=== PATIENT | female | born 1990 | race Caucasian/White ===

== ENCOUNTER 2017-04-25 21:41 | Emergency (ER) | payer BC, OTHER ==
--- NOTE | 2017-04-25 22:12 | ERPHSYRPT ---
- History of Present Illness Time Seen by Provider: 04/25/17 21:55 Historian: patient Exam Limitations: no limitations Patient Subjective Stated Complaint: pt states she had a small amt of bright red blood on her underwear and when she wiped at approx 2120. states she had some cramping this afternoon that went away Triage Nursing Assessment: pt alert and oriented, answers questions approp. pt ambulatory with steady gait noted. respirations nonlabored with lungs cta. abd soft and nontender. bowel osunds in all 4 quads. Physician History: FOR THE PAST 2 DAYS PT HAS HAD LOWER ABDOMINAL CRAMPS AND ABOUT 45 MINUTES AGO STARTED WITH BRIGHT RED VAGINAL BLEEDING ABOUT 1 TABLESPOON. PT DENIES CHEST PAIN, SHORTNESS OF AIR, RASH, FEVER, HEADACHE. PT STATES SHE IS 11 WEEKS AND HAS ONE LIVING CHILD; DENIES ABORTIONS OR MISCARRIAGES. Allergies/Adverse Reactions: No Known Drug Allergies Allergy (Verified 02/24/16 15:35) Hx Tetanus, Diphtheria Vaccination/Date Given: Yes Hx Influenza Vaccination/Date Given: No Hx Pneumococcal Vaccination/Date Given: No Immunizations Up to Date: Yes - Review of Systems Constitutional: No Fever Respiratory: No Dyspnea Cardiac: No Chest Pain Abdominal/Gastrointestinal: Abdominal Pain Genitourinary Symptoms: Vaginal Bleeding Skin: No Rash Neurological: No Headache All Other Systems: Reviewed and Negative - Past Medical History Pertinent Past Medical History: No Neurological History: No Pertinent History ENT History: No Pertinent History Cardiac History: No Pertinent History Respiratory History: No Pertinent History Endocrine Medical History: No Pertinent History Musculoskeletal History: No Pertinent History GI Medical History: Gallbladder Disease History: No Pertinent History Psycho-Social History: No Pertinent History Female Reproductive Disorders: No Pertinent History - Past Surgical History Past Surgical History: Yes Neuro Surgical History: No Pertinent History Cardiac: No Pertinent History Respiratory: No Pertinent History Gastrointestinal: Cholecystectomy Genitourinary: No Pertinent History Musculoskeletal: No Pertinent History Female Surgical History: Section - Social History Smoking Status: Current every day smoker How long have you smoked: 10 yrs Exposure to second hand smoke: Yes Drug Use: none Patient Lives Alone: No - Female History Hx Last Menstrual Period: january- unsure when Expected Date of Delivery: 11/03/17 Gestational Age: 12 weeks - Nursing Vital Signs Nursing Vital Signs: Initial Vital Signs Temperature 97.4 F 04/25/17 21:45 Pulse Rate 91 H 04/25/17 21:45 Respiratory Rate 16 04/25/17 21:45 Blood Pressure 128/87 04/25/17 21:45 O2 Sat by Pulse Oximetry 99 04/25/17 21:45 Pain Scale Pain Intensity 0 - Physical Exam General Appearance: alert Eye Exam: PERRL/EOMI Ears, Nose, Throat Exam: TMs normal, pharynx normal, moist mucous membranes Neck Exam: normal inspection Respiratory Exam: lungs clear Cardiovascular Exam: normal heart sounds Gastrointestinal/Abdomen Exam: soft, normal bowel sounds, No tenderness Back Exam: normal range of motion Extremity Exam: normal inspection, No pedal edema Neurologic Exam: alert, cooperative Skin Exam: warm, dry SpO2 Interpretation: normal SpO2: 99 Oxygen Delivery: Room Air - Course Nursing assessment & vital signs reviewed: Yes - Radiology Ultrasound Exam OB Ultrasound: Other (TECH REPORT: BLIGHTED OVUM.) Ordered Tests: Active Orders 24 hr Category Date Time Status OB <14 WKS ADDL GESTATION [US] Stat Exams 04/25/17 23:39 Ordered AMYLASE Stat Lab 04/25/17 22:30 Completed CBC W DIFF Stat Lab 04/25/17 22:30 Completed CMP Stat Lab 04/25/17 22:30 Completed CULTURE,URINE Stat Lab 04/25/17 22:20 Received HCG, Quantitative (Inhouse) Stat Lab 04/25/17 22:30 Completed LIPASE Stat Lab 04/25/17 22:30 Completed PROTIME WITH INR Stat Lab 04/25/17 22:30 Completed PTT Stat Lab 04/25/17 22:30 Completed UA W/ MICROSCOPIC Stat Lab 04/25/17 22:20 Completed Lab/Rad Data: Laboratory Result Diagrams 04/25/17 22:30 04/25/17 22:30 Laboratory Results 04/25/17 04/25/17 04/25/17 Range/Units 22:30 22:30 22:30 WBC (4.0-10.5) K/mm3 RBC (4.1-5.4) M/mm3 Hgb (12.0-16.0) gm/dl Hct (35-47) % MCV (78-100) fl MCH (26-32) pg MCHC (32-36) g/dl RDW (11.5-14.0) % Plt Count (150-450) K/mm3 MPV (6-9.5) fl Gran % (36.0-66.0) % Lymphocytes % (24.0-44.0) % Monocytes % (0.0-12.0) % Eosinophils % (0.00-5.0) % Basophils % (0.0-0.4) % Basophils # (0-0.4) INR 1.12 (0.8-3.0) APTT 30.3 (25.3-37.0) SECONDS Sodium 143 (136-145) mEq/L Potassium 4.1 (3.5-5.1) mEq/L Chloride 105 (98-107) mEq/L Carbon Dioxide 28.0 (21-32) mEq/L Anion Gap 13.7 (5-15) MEQ/L BUN 9 (9-20) mg/dL Creatinine 0.64 (0.55-1.30) mg/dl Estimated GFR > 60 ML/MIN Glucose 86 (70-110) MG/DL Calcium 9.1 (8.5-10.1) mg/dL Total Bilirubin 0.20 (0.2-1.0) mg/dL AST 20 (15-37) U/L ALT 23 (12-78) U/L Alkaline Phosphatase 64 (46-116) U/L Serum Total Protein 7.1 (6.4-8.2) gm/dL Albumin 3.4 (3.4-5.0) g/dL Amylase 54 (25-115) U/L Lipase 75 (73-393) U/L Beta HCG, Quant 2751 H (0-6) IU/L Ur Collection Type Urine Color (YELLOW) Urine Appearance (CLEAR) Urine pH (5-6) Ur Specific Martin (1.005-1.025) Urine Protein (Negative) Urine Ketones (NEGATIVE) Urine Blood (0-5) Tariq/ul Urine Nitrite (NEGATIVE) Urine Bilirubin (NEGATIVE) Urine Urobilinogen (0-1) mg/dL Ur Leukocyte Esterase (NEGATIVE) Urine Microscopic RBC (0-2) /HPF Urine Microscopic WBC (0-5) /HPF Ur Epithelial Cells (FEW) /HPF Urine Bacteria (NEGATIVE) /HPF Urine Glucose (NEGATIVE) mg/dL Specimen Received 04/25/17 04/25/17 Range/Units 22:30 22:20 WBC 14.0 H (4.0-10.5) K/mm3 RBC 3.95 L (4.1-5.4) M/mm3 Hgb 12.0 (12.0-16.0) gm/dl Hct 36.2 (35-47) % MCV 91.6 (78-100) fl MCH 30.3 (26-32) pg MCHC 33.1 (32-36) g/dl RDW 13.1 (11.5-14.0) % Plt Count 244 (150-450) K/mm3 MPV 10.1 H (6-9.5) fl Gran % 60.0 (36.0-66.0) % Lymphocytes % 27.2 (24.0-44.0) % Monocytes % 7.7 (0.0-12.0) % Eosinophils % 4.8 (0.00-5.0) % Basophils % 0.3 (0.0-0.4) % Basophils # 0.04 (0-0.4) INR (0.8-3.0) APTT (25.3-37.0) SECONDS Sodium (136-145) mEq/L Potassium (3.5-5.1) mEq/L Chloride (98-107) mEq/L Carbon Dioxide (21-32) mEq/L Anion Gap (5-15) MEQ/L BUN (9-20) mg/dL Creatinine (0.55-1.30) mg/dl Estimated GFR ML/MIN Glucose (70-110) MG/DL Calcium (8.5-10.1) mg/dL Total Bilirubin (0.2-1.0) mg/dL AST (15-37) U/L ALT (12-78) U/L Alkaline Phosphatase (46-116) U/L Serum Total Protein (6.4-8.2) gm/dL Albumin (3.4-5.0) g/dL Amylase (25-115) U/L Lipase (73-393) U/L Beta HCG, Quant (0-6) IU/L Ur Collection Type CLEAN CATCH Urine Color LIGHT RED (YELLOW) Urine Appearance CLEAR (CLEAR) Urine pH 6.5 (5-6) Ur Specific Martin 1.015 (1.005-1.025) Urine Protein 30 (Negative) Urine Ketones NEGATIVE (NEGATIVE) Urine Blood 250 (0-5) Tariq/ul Urine Nitrite NEGATIVE (NEGATIVE) Urine Bilirubin NEGATIVE (NEGATIVE) Urine Urobilinogen NORMAL (0-1) mg/dL Ur Leukocyte Esterase 1+ (NEGATIVE) Urine Microscopic RBC 10-15 (0-2) /HPF Urine Microscopic WBC 2-5 (0-5) /HPF Ur Epithelial Cells RARE (FEW) /HPF Urine Bacteria FEW (NEGATIVE) /HPF Urine Glucose NEGATIVE (NEGATIVE) mg/dL Specimen Received 04/25/17:2230 - Progress Discussed with : Christiano (36-NOVEMBER SEND PT HOME.) - Departure Time of Disposition: 00:44 Departure Disposition: Home Clinical Impression: BLIGHTED OVUM, VAGINAL BLEEDING Condition: Stable Critical Care Time: No Referrals: LEBRON MAYS MD [Primary Care Provider] - Instructions: Vaginal Bleeding Additional Instructions: FOLLOW UP WITH OB DOCTOR LATER TODAY. STRICT BED REST UNTIL OB DOCTOR IS SEEN TODAY.
[2017-04-25 22:35] LABS: BASOPHIL % 0.3 % (0.0-0.4); Eosinophil % 4.8 % (0.00-5.0); Lymphocytes % 27.2 % (24.0-44.0); Mean Cell Volume 91.6 fl (78-100); Mean Platelet Volume 10.1 fl (6-9.5); Monocytes % 7.7 % (0.0-12.0); Platelet Count 244 K/mm3 (150-450); Red Blood Count 3.95 M/mm3 (4.1-5.4); Red Cell Distribution Width 13.1 % (11.5-14.0)
[2017-04-25 22:37] LABS: Mean Corpuscular Hemoglobin 30.3 pg (26-32)
[2017-04-25 22:49] LABS: ADD URINE CULTURE? YES (NO); Bilirubin NEGATIVE (NEGATIVE); Blood 250 Ery/ul (0-5); COMPLETE URINE MICROSCOPIC? YES; Collection Type CLEAN CATCH; Glucose NEGATIVE (NEGATIVE); Leukocyte Esterase 1+ (NEGATIVE)
[2017-04-25 22:50] LABS: Bacteria FEW /HPF (NEGATIVE); Epithelial Cells RARE /HPF (FEW)
[2017-04-25 22:52] LABS: INR 1.12 (0.8-3.0); PROTIME 12.5 SECONDS (9.95-12.35)
[2017-04-25 22:54] LABS: PTT 30.3 SECONDS (25.3-37.0)
[2017-04-25 23:00] LABS: ALBUMIN 3.4 g/dL (3.4-5.0); ALKALINE PHOSPHATASE 64 U/L (46-116); ANION GAP 13.7 MEQ/L (5-15); BLOOD UREA NITROGEN 9 mg/dL (9-20); CHLORIDE 105 mEq/L (98-107); Glucose 86 MG/DL (70-110); LIPASE 75 U/L (73-393); Potassium 4.1 mEq/L (3.5-5.1); SGOT/AST 20 U/L (15-37); SGPT/ALT 23 U/L (12-78); SODIUM 143 mEq/L (136-145); Total Protein 7.1 gm/dL (6.4-8.2)
[2017-04-26 00:44] VITALS: O2SAT 99
[2017-04-26 00:47] VITALS: BP 125/74; PULSE 80
--- NOTE | 2017-04-26 09:05 | XRAY ---
Indication: Bleeding. 12 weeks . Two-dimensional transvaginal early OB ultrasound performed. Comparison: None for this . Uterus is retroflexed with a single intrauterine gestational sac that appears flat. Mean sac diameter is 2.81 cm corresponding to 7 weeks 4 days. There are low-level internal echoes within the gestational sac but no pole or heart tones. Right ovary measures 2.9 x 2.8 x 3.4 cm and the left measures 3.4 x 1.7 x 2.6 cm. No suspicious adnexal mass or free fluid. Impression: Single intrauterine gestational sac appearing deformed measuring 7 weeks 4 days. No pole or heart tones. Correlate with serial beta hCG and follow-up sonogram to evaluate viability. Comment: Preliminary report was given.
== END 2017-04-26 00:51 | disposition home or self-care (01) ==
LOC: ED 21:41
DX: O02.0 Blighted ovum and nonhydatidiform mole (principal); N93.9 Abnormal uterine and vaginal bleeding, unspecified
CPT/HCPCS: 36415; 76815; 76817; 80053; 81000; 82150; 83690; 84702; 85025; 85610; 85730; 87086; 99284

== ENCOUNTER 2018-04-03 17:58 | Observation (INO) | payer OTHER ==
[2018-04-03 18:47] LABS: Amphetamine,Urine NEGATIVE (NEGATIVE); Barbiturate,Urine NEGATIVE (NEGATIVE); Benzodiazepine,Urine NEGATIVE (NEGATIVE); Cocaine,Urine NEGATIVE (NEGATIVE); Methadone,Urine NEGATIVE (NEGATIVE); Opiate,Urine NEGATIVE (NEGATIVE); PCP,Urine NEGATIVE (NEGATIVE); THC,Urine NEGATIVE (NEGATIVE)
[2018-04-03 20:14] LABS: Appearance CLEAR (CLEAR); Bilirubin NEGATIVE (NEGATIVE); Glucose NEGATIVE (NEGATIVE); Ketones NEGATIVE (NEGATIVE); Leukocyte Esterase 1+ (NEGATIVE); Nitrite NEGATIVE (NEGATIVE); Protein,Urine Dip NEGATIVE (Negative); Specific Gravity 1.025 (1.005-1.025); Urobilinogen NORMAL mg/dL (0-1)
[2018-04-03 20:15] LABS: Blood TRACE NON-HEM Ery/ul (0-5)
[2018-04-03 20:18] LABS: Bacteria MANY /HPF (NEGATIVE); Epithelial Cells MANY /HPF (FEW); RBC 0-2 /HPF (0-2); WBC 15-25 /HPF (0-5)
[2018-04-03 20:50] VITALS: BP 129/68; PULSE 90
== END 2018-04-03 20:45 | disposition home or self-care (01) ==
LOC: OB 17:58
PROVIDERS: ADMIT Family Medicine; ATTEND Family Medicine
DX: Z34.83 Encounter for supervision of other normal pregnancy, third trimester (principal)
CPT/HCPCS: 80307; 81000; 84156; G0378

== ENCOUNTER 2018-04-20 02:41 | Inpatient (IN) | payer OTHER ==
[2018-04-20 03:35] LABS: Hematocrit 34.5 % (35-47); Hemoglobin 11.4 gm/dl (12.0-16.0); Mean Cell Volume 90.3 fl (78-100); Mean Corpuscular Hemoglobin 29.8 pg (26-32); Mean Platelet Volume 11.3 fl (6-9.5); Platelet Count 250 K/mm3 (150-450); Red Blood Count 3.82 M/mm3 (4.1-5.4); Red Cell Distribution Width 14.6 % (11.5-14.0); White Blood Count 18.1 K/mm3 (4.0-10.5)
[2018-04-20 03:49] LABS: INR 0.99 (0.8-3.0)
[2018-04-20 03:52] LABS: PTT 24.6 SECONDS (25.3-37.0)
[2018-04-20] MEDS ORDERED: CEFAZOLIN 2 GM-D5W BAG** 2 GM/50 ML ML IV SCH (04:30)
[2018-04-20 04:40] LABS: Appearance CLOUDY (CLEAR)
[2018-04-20 04:42] LABS: Bilirubin NEGATIVE (NEGATIVE); Blood TRACE NON-HEM Ery/ul (0-5); Glucose NEGATIVE (NEGATIVE); Ketones SMALL (NEGATIVE); Leukocyte Esterase 2+ (NEGATIVE); Nitrite NEGATIVE (NEGATIVE); Protein,Urine Dip TRACE (Negative); Urobilinogen 1 mg/dL (0-1)
[2018-04-20 04:47] LABS: Bacteria MANY /HPF (NEGATIVE); Epithelial Cells MANY /HPF (FEW); WBC 25-50 /HPF (0-5)
[2018-04-20 04:52] LABS: ABO TYPING A; Antibody Screen NEGATIVE (NEGATIVE); RH TYPING POSITIVE
[2018-04-20 04:55] LABS: Amphetamine,Urine NEGATIVE (NEGATIVE); Barbiturate,Urine NEGATIVE (NEGATIVE); Benzodiazepine,Urine NEGATIVE (NEGATIVE); Cocaine,Urine NEGATIVE (NEGATIVE); Methadone,Urine NEGATIVE (NEGATIVE); Opiate,Urine NEGATIVE (NEGATIVE); PCP,Urine NEGATIVE (NEGATIVE); THC,Urine NEGATIVE (NEGATIVE)
[2018-04-20] MEDS ORDERED: Lactated Ringers 1,000 ML IV SCH (05:00)
[2018-04-20] MEDS ORDERED: Pepcid 20 MG VIAL IV SCH (05:00)
[2018-04-20] MEDS ORDERED: BICITRA 30 ML CUP PO SCH (05:00)
[2018-04-20] MEDS ORDERED: Reglan 10 MG/2 ML IV SCH (05:00)
[2018-04-20] MEDS ORDERED: Lactated Ringers 1,000 ML IV ONE ×2 (05:00→08:23)
[2018-04-20] MEDS ORDERED: MORPHINE SULFATE 2 MG INJ IV PRN (09:00)
[2018-04-20] MEDS ORDERED: Anucort-HC SUPPOSITORY PR PRN (09:00)
[2018-04-20] MEDS ORDERED: LANSINOH 40 GM TOP PRN (09:00)
[2018-04-20] MEDS ORDERED: Dulcolax 10 MG SUPP PR PRN (09:00)
[2018-04-20] MEDS ORDERED: Nubain 10 MG/ML IV PRN (09:00)
[2018-04-20] MEDS ORDERED: Adacel Vial IM ONE (09:00)
[2018-04-20] MEDS ORDERED: TYLENOL EXTRA STRENGTH 500 MG PO PRN (09:00)
[2018-04-20] MEDS ORDERED: BENADRYL 50 MG/ML IV PRN (09:00)
[2018-04-20] MEDS ORDERED: Mylicon 80MG PO PRN (09:00)
[2018-04-20] MEDS ORDERED: DEMEROL 50 MG IV PRN (09:00)
[2018-04-20] MEDS ORDERED: CORTISONE 1% CREAM TP PRN (09:00)
[2018-04-20] MEDS ORDERED: CLARITIN 10 MG PO PRN (09:00)
[2018-04-20] MEDS ORDERED: Dermoplast Spray TP PRN (09:00)
[2018-04-20] MEDS ORDERED: Zofran 4 MG/2 ML VIAL IV PRN (09:00)
[2018-04-20] MEDS ORDERED: Narcan 0.4 MG/ML IV PRN (09:00)
[2018-04-20] MEDS ORDERED: HOLD NARCOTIC ANALGESICS AND SEDATIVES X24 HR MC PRN (09:00)
--- NOTE | 2018-04-20 09:23 | OP ---
SURGERY DATE/TIME: 04/20/2018 0735 PREOPERATIVE DIAGNOSES: 1) History of prior section. 2) Term intrauterine . POSTOPERATIVE DIAGNOSES: 1) History of prior section. 2) Term intrauterine . PROCEDURE: Repeat low transverse section. SURGEON: Fabrizio Ambrosio M.D. ESTIMATED BLOOD LOSS: 400 cc. IV FLUIDS: 1500 cc of crystalloid. URINE OUTPUT: 200 cc of clear straw-colored urine. ANESTHESIA: Spinal by Holden Hensley CRNA. SPECIMENS: None. DESCRIPTION OF PROCEDURE: After informed written consent was obtained, the patient was taken to the operating room. She underwent spinal anesthesia and was prepped and draped in the usual sterile fashion. Adequate level of anesthesia was assessed and then a low transverse skin incision was made by knife carried through the subcutaneous fat to the level of the fascia. The fascia was nicked on both sides of the midline and extended in horizontal fashion using curved Benjamin scissors. The superior free edge of the fascia was grasped with Jacki clamps and the underlying rectus muscles were dissected free. The same was repeated inferiorly. The peritoneal cavity was opened and extended in horizontal fashion. Next, a bladder blade was created and reflected over the lower uterine segment. A horizontal uterine incision was then made by knife and carried down to the level of the amniotic membranes which were carefully artificially ruptured. A viable female infant with loose nuchal x1 was delivered from the vertex presentation. Oropharynx and nares were bulb suctioned free. The cord was clamped and cut and she was handed off to the awaiting nursery team. There was meconium passed on the operative field by the baby at . The uterus was exteriorized and the placenta was manually removed. Next, the uterine cavity was wiped free of any remaining membranes, blood, clot, etc. with a lap sponge. Next, the uterine incision was closed with #1 chromic in a running locked fashion. Good closure and good hemostasis were achieved. Posterior cul-de-sac was wiped free of blood and clot with moist lap sponge after inspection. The uterus was then returned to the peritoneal cavity. Lateral gutters were wiped free of blood and clot. Again, the uterine incision was inspected and noted to be hemostatic. Next, the fascia was closed with 0 Vicryl in a running fashion with good closure and good hemostasis were achieved. The subcutaneous fat was irrigated with warm, sterile saline and then the subcutaneous fat space was closed with 3-0 Vicryl in a running fashion. The skin was closed with 4-0 undyed Vicryl in a running subcuticular fashion. Steri-Strips and occlusive dressing were placed over the incision. The patient was transferred to the recovery in good condition.
[2018-04-20 10:01] LABS: Appearance CLEAR (CLEAR); Specific Gravity 1.005 (1.005-1.025)
[2018-04-20 10:02] LABS: Bilirubin NEGATIVE (NEGATIVE); Blood NEGATIVE Ery/ul (0-5); Glucose NEGATIVE (NEGATIVE); Ketones NEGATIVE (NEGATIVE); Leukocyte Esterase NEGATIVE (NEGATIVE); Nitrite NEGATIVE (NEGATIVE); Protein,Urine Dip NEGATIVE (Negative); Urobilinogen NORMAL mg/dL (0-1)
[2018-04-20] MEDS: Dextrose 5%-Lr IV Solution 1000 ML 1,000 ML IV SCH ×2 (12:00→19:21)
[2018-04-20] MEDS: PERCOCET TABLET 5/325MG PO PRN ×2 (12:51→19:21)
[2018-04-20] MEDS: Colace 100 MG PO SCH ×2 (13:11→22:42)
[2018-04-20] MEDS ORDERED: M-M-R II Vaccine With Diluent SQ ONE (13:11)
[2018-04-20] MEDS: FERREX 150 PO SCH (13:11)
[2018-04-20] MEDS ORDERED: Astramorph-Pf 5 MG/10 ML IJ ONE (15:27)
[2018-04-20] MEDS ORDERED: Naropin 0.5% 30 ML VIAL IJ ONE (15:32)
[2018-04-20] MEDS ORDERED: Pitocin 10 UNITS/ML IV ONE (15:32)
[2018-04-20] MEDS ORDERED: TORAdol 30 mg Injection IJ ONE (15:32)
[2018-04-20] MEDS ORDERED: Zofran 4 MG/2 ML VIAL IV ONE (15:32)
[2018-04-20] MEDS ORDERED: Decadron 4 MG INJ IV ONE (15:32)
[2018-04-20] MEDS ORDERED: LIDOCAINE HCL 2% 100 MG/5 ML IJ ONE (15:32)
[2018-04-20] MEDS ORDERED: Marcaine Spinal Ampul IJ ONE (15:32)
[2018-04-20] MEDS: MOTRIN 400 MG PO PRN (16:29)
[2018-04-21] MEDS: PERCOCET TABLET 5/325MG PO PRN ×2 (01:22→06:17)
[2018-04-21] MEDS: Dextrose 5%-Lr IV Solution 1000 ML 1,000 ML IV SCH (03:24)
[2018-04-21 05:31] LABS: Granulocyte Absolute (ANC) 14.89 (1.4-6.9); Hematocrit 28.1 % (35-47); Hemoglobin 9.1 gm/dl (12.0-16.0); Mean Cell Volume 92.4 fl (78-100); Mean Corpuscular Hemoglobin 29.9 pg (26-32); Mean Corpuscular Hgb Concent. 32.4 g/dl (32-36); Mean Platelet Volume 11.4 fl (6-9.5); Platelet Count 207 K/mm3 (150-450); Red Blood Count 3.04 M/mm3 (4.1-5.4); Red Cell Distribution Width 14.5 % (11.5-14.0)
[2018-04-21 06:30] VITALS: O2SAT 97
[2018-04-21 06:37] LABS: ATYPICAL LYMPHS 1 %; Eosinophil 1 % (0.00-3.0); Lymphocytes 27 % (24-44); Monocyte 2 % (0.0-12.0); Neutrophils 69 % (36.0-66.0); Total Cells Counted 100
[2018-04-21 06:39] LABS: Platelet Estimate NORMAL (NORMAL)
[2018-04-21] MEDS ORDERED: DEMEROL 75 MG IM PRN (09:00)
[2018-04-21] MEDS ORDERED: Phenergan 25 MG INJ IM PRN (09:00)
[2018-04-21] MEDS: FERREX 150 PO SCH (09:59)
[2018-04-21] MEDS: Colace 100 MG PO SCH ×2 (09:59→21:56)
[2018-04-21] MEDS: NORCO 5/325 MG PO PRN ×3 (10:29→19:59)
[2018-04-21] MEDS: MOTRIN 400 MG PO PRN ×2 (15:09→21:56)
[2018-04-22] MEDS: NORCO 5/325 MG PO PRN ×3 (01:59→10:50)
[2018-04-22] MEDS: MOTRIN 400 MG PO PRN (06:21)
[2018-04-22 07:36] VITALS: BP 132/76; PULSE 65
--- NOTE | 2018-04-22 08:50 | PCM.DS ---
Discharge Summary Date of Admission: 04/20/18 02:41 Admitting Physician: LEBRON MAYS Consults: Consults on Case 04/20/18 05:00 Notify Anesthesia Provider ROUTINE Notify Physician OF ADMISSION Primary Care Provider: LEBRON MAYS Allergies Allergies No Known Drug Allergies Allergy (Verified 04/03/18 18:13) Hospital Summary - Hospital Course Hospital Course: patient had repeat on 04/20/18, has had no complications. doing well with mild lochia, pain is well controlled. tolerating po and vitals are good - Vitals & Intake/Output Vital Signs: Vital Signs Temperature 98.3 F 04/22/18 06:00 Pulse Rate 65 04/22/18 06:00 Respiratory Rate 18 04/22/18 06:00 Blood Pressure 132/76 04/22/18 06:00 O2 Sat by Pulse Oximetry 97 04/21/18 08:00 Intake & Output: Intake & Output 04/19/18 04/20/18 04/21/18 04/22/18 11:59 11:59 11:59 11:59 Intake Total 3752 1740 Output Total 2150 Balance 1602 1740 Weight 234 kg 106.541 kg - Lab Result Diagrams: 04/21/18 05:10 Micro Results-Entire Visit: Microbiology 04/20/18 07:50 Urine Culture - Preliminary Clean Catch Midstream NO GROWTH TO DATE - Procedures and Test Procedures and Tests throughout Hospitalization: Therapy Orders & Screens 04/20/18 08:23 Standby Routine Comment: Diagnosis: Repeat Section Discharge Exam Skin Exam: normal color, warm, dry Respiratory Exam: normal breath sounds, lungs clear, No respiratory distress Cardiovascular Exam: regular rate/rhythm, normal heart sounds Gastrointestinal/Abdomen Exam: soft, other (incision clean, dry, intact and well approximated), No tenderness, No mass Extremity Exam: normal inspection, normal range of motion Final Diagnosis/Problem List - Final Discharge Diagnosis/Problem (1) delivery delivered Current Visit: Yes Status: Acute - Discharge Disposition: Home, Self-Care Condition: Stable Prescriptions: New Hydrocodone Bit/Acetaminophen [[place] 5-325 Tablet] 1 each PO Q4-6HPRN PRN # 28 tablet MDD 4 PRN Reason: Pain Continue Vits W-Ca,Fe,FA(<1Mg) [] 1 each PO DAILY Ferrous Sulfate 325 mg PO BID Follow up with: LEBRON MAYS MD [Primary Care Provider] - 1 Week
[2018-04-22] MEDS: FERREX 150 PO SCH (10:50)
[2018-04-22] MEDS: Colace 100 MG PO SCH (10:51)
== END 2018-04-22 13:55 | disposition home or self-care (01) | DRG 766 ==
LOC: MED SURG 02:41 → PREOBSVTOIN 21:53
PROVIDERS: ADMIT Family Medicine; ATTEND Family Medicine
PROC: 10D00Z1 Extraction of Products of Conception, Low, Open Approach (ICD-10-PCS; principal; 2018-04-20)
DX: O34.211 Maternal care for low transverse scar from previous cesarean delivery (principal); Z3A.38 38 weeks gestation of pregnancy; Z37.0 Single live birth
CPT/HCPCS: 36415; 64488; 76937; 76942; 80307; 81000; 81002; 81003; 85025; 85027; 85610; 85730; 86850; 86900; 86901; 87086; 90707; 90715; 94799; J0690; J1100; J1885; J2274; J2405; J2590; J2795; L0625; A9270-GY

== ENCOUNTER 2020-09-24 07:23 | Inpatient (IN) | payer MEDICAID ==
[2020-09-24 08:03] LABS: Amphetamine,Urine NEGATIVE (NEGATIVE); Barbiturate,Urine NEGATIVE (NEGATIVE); Benzodiazepine,Urine NEGATIVE (NEGATIVE); Cocaine,Urine NEGATIVE (NEGATIVE); Methadone,Urine NEGATIVE (NEGATIVE); Opiate,Urine NEGATIVE (NEGATIVE); PCP,Urine NEGATIVE (NEGATIVE); THC,Urine NEGATIVE (NEGATIVE)
[2020-09-24] MEDS ORDERED: SOD CITRATE-CITRIC ACID SOLN PO ONE (08:05)
[2020-09-24] MEDS ORDERED: Pepcid 20 MG VIAL IV SCH (08:15)
[2020-09-24] MEDS ORDERED: Reglan 10 MG/2 ML IV SCH (08:15)
[2020-09-24] MEDS ORDERED: Lactated Ringers 1,000 ML IV SCH (08:30)
[2020-09-24] MEDS ORDERED: CEFAZOLIN 2 GM-D5W BAG** 2 GM/50 ML ML IV SCH (08:30)
[2020-09-24 08:37] LABS: Hematocrit 36.1 % (35-47); Hemoglobin 11.3 gm/dl (12.0-16.0); Mean Cell Volume 91.2 fl (78-100); Mean Corpuscular Hemoglobin 28.5 pg (26-32); Mean Corpuscular Hgb Concent. 31.3 g/dl (32-36); Mean Platelet Volume 10.7 fl (7.5-11.0); Platelet Count 247 K/mm3 (150-450); Red Blood Count 3.96 M/mm3 (4.1-5.4); Red Cell Distribution Width 14.1 % (11.5-14.0); White Blood Count 13.6 K/mm3 (4.0-10.5)
[2020-09-24 08:45] LABS: INR 1.08 (0.8-3.0); PROTIME 12.2 SECONDS (9.95-12.35)
[2020-09-24 08:47] LABS: PTT 23.6 SECONDS (25.3-37.0)
[2020-09-24 09:12] LABS: ABO TYPING A; Antibody Screen NEGATIVE (NEGATIVE); RH TYPING POSITIVE
[2020-09-24] MEDS ORDERED: Astramorph-Pf 5 MG/10 ML ONE (09:16)
[2020-09-24] MEDS ORDERED: Lactated Ringers 2,000 ML IV ONE (09:23)
[2020-09-24] MEDS ORDERED: MARCAINE 0.5%-EPI 1:200,000 VL IJ ONE (09:53)
[2020-09-24] MEDS ORDERED: Pitocin 10 UNITS/ML ONE ×2 (09:53→10:08)
[2020-09-24] MEDS ORDERED: Marcaine 0.5%/Epinephrine 10 ML ONE (09:53)
[2020-09-24] MEDS ORDERED: Zofran 4 MG/2 ML VIAL ONE (09:56)
[2020-09-24 10:24] LABS: Appearance CLOUDY (CLEAR); Bacteria RARE /HPF (NEGATIVE); Bilirubin NEGATIVE (NEGATIVE); Blood MODERATE Ery/ul (0-5); Epithelial Cells MODERATE /HPF (FEW); Glucose NEGATIVE (NEGATIVE); Ketones NEGATIVE (NEGATIVE); Leukocyte Esterase TRACE (NEGATIVE); Mucus SLIGHT /HPF (NEGATIVE); Nitrite NEGATIVE (NEGATIVE); Protein,Urine Dip 100 (Negative); RBC 26-50 /HPF (0-2); Specific Gravity 1.012 (1.005-1.025); Urobilinogen NEGATIVE mg/dL (0-1)
[2020-09-24] MEDS ORDERED: Adacel Vial IM ONE (10:35)
[2020-09-24] MEDS ORDERED: MORPHINE SULFATE 2 MG INJ IV PRN (10:35)
[2020-09-24] MEDS ORDERED: Nubain 10 MG/ML IV PRN (10:35)
[2020-09-24] MEDS ORDERED: Anucort-HC SUPPOSITORY PR PRN (10:35)
[2020-09-24] MEDS ORDERED: HOLD NARCOTIC ANALGESICS AND SEDATIVES X24 HR MC PRN (10:35)
[2020-09-24] MEDS ORDERED: Dulcolax 10 MG SUPP PR PRN (10:35)
[2020-09-24] MEDS ORDERED: Ambien 10 MG PO PRN (10:35)
[2020-09-24] MEDS ORDERED: TYLENOL EXTRA STRENGTH 500 MG PO PRN (10:35)
[2020-09-24] MEDS ORDERED: Mylicon 80MG PO PRN (10:35)
[2020-09-24] MEDS ORDERED: CLARITIN 10 MG PO PRN (10:35)
[2020-09-24] MEDS ORDERED: Zofran 4 MG/2 ML VIAL IV PRN (10:35)
[2020-09-24] MEDS ORDERED: MOTRIN 400 MG PO PRN (10:35)
[2020-09-24] MEDS ORDERED: BENADRYL 50 MG/ML IV PRN (10:35)
[2020-09-24] MEDS ORDERED: Narcan 0.4 MG/ML IV PRN (10:35)
[2020-09-24] MEDS ORDERED: TUCKS TP PRN (10:35)
[2020-09-24] MEDS ORDERED: Dextrose 5%-Lr IV Solution 1000 ML 1,000 ML IV SCH (11:00)
--- NOTE | 2020-09-24 11:48 | OP ---
SURGERY DATE/TIME: 09/24/2020 0921 PREOPERATIVE DIAGNOSES: 1) Term intrauterine in active labor. 2) History of prior section. 3) Desires permanent sterilization. POSTOPERATIVE DIAGNOSES: 1) Term intrauterine . 2) History of prior section. 3) Desires permanent sterilization. PROCEDURE: Repeat low transverse section with bilateral tubal ligation. SURGEON: Fabrizio Ambrosio M.D. ESTIMATED BLOOD LOSS: 300 cc. URINE OUTPUT: 200 cc of clear straw-colored urine. ANESTHESIA: Spinal by Apolinar Valente CRNA. DESCRIPTION OF PROCEDURE: After informed written consent was obtained, the patient was taken to the operating room. She had spinal epidural placed and then was prepped and draped in the usual sterile fashion. A low transverse skin incision was made by knife and carried down to the level of subcutaneous fat to the level of the fascia. The fascia was nicked on both sides of the midline extending horizontal using curved Benjamin scissors. The superior free edge of the fascia was grasped with Jacki clamps and the underlying rectus muscles were dissected free. The same was repeated inferiorly. The peritoneal cavity was opened horizontally using blunt dissection. Bladder blade was then inserted. A low transverse uterine incision was made by knife and carried down to the level of the amniotic membranes which were carefully artificially ruptured. Clear amniotic fluid was encountered. A viable female was delivered from the vertex presentation with strong cry. The oropharynx and nares were suctioned free. The cord was clamped and cut and she was handed off to the awaiting nursery team. The placenta was then manually extracted and the uterus was exteriorized. The uterine cavity was sponge curetted clean with lap sponge. The uterine incision was closed with #1 chromic in a running locked fashion. Two layers were used to close. There was a small area on the left aspect of the incision which extended in the inferior aspect which was closed as well. Good hemostasis and good closure were achieved. The left fallopian tube was then identified and carried down to the fimbrial edge and grasped with [place] and electrocautery was used to make a window in the mesosalpinx. Proximal and distal tube segments were ligated with chromic tie. The interceding tube segment was dissected free and the free edge of the tube was cauterized. There was an area of bleeding in the mesosalpinx which was controlled with 2-0 Vicryl in a running locked fashion with good hemostasis achieved. The right tube was then identified and the same procedure was repeated with the right tube. The tube segment was dissected free, proximal and distal tube ends were cauterized with electrocautery. Posterior cul-de-sac was wiped free of blood and clot. The uterus was returned to the peritoneal cavity. Lateral gutters were wiped free of blood and clot. The incision was inspected and noted to have good hemostasis with good closure. Next, the fascia was closed with 0 Vicryl in a running fashion with good closure and good hemostasis were achieved. The subcutaneous fat was irrigated with warm, sterile saline and skin layer was closed with 4-0 undyed Vicryl in a running subcuticular fashion. Steri-Strips and occlusive dressing were placed over the incision. The patient was transferred to the recovery room in good condition.
[2020-09-24] MEDS ORDERED: Compazine 10 MG/2 ML IV ONE (15:49)
[2020-09-24] MEDS: PERCOCET TABLET 5/325MG PO PRN ×2 (16:30→20:57)
[2020-09-24] MEDS: Colace 100 MG PO SCH (20:57)
[2020-09-25] MEDS: PERCOCET TABLET 5/325MG PO PRN ×2 (02:01→06:09)
[2020-09-25 05:25] LABS: Hematocrit 30.8 % (35-47); Hemoglobin 9.4 gm/dl (12.0-16.0); Mean Cell Volume 92.8 fl (78-100); Mean Corpuscular Hemoglobin 28.3 pg (26-32); Mean Corpuscular Hgb Concent. 30.5 g/dl (32-36); Mean Platelet Volume 10.6 fl (7.5-11.0); Platelet Count 192 K/mm3 (150-450); Red Blood Count 3.32 M/mm3 (4.1-5.4); Red Cell Distribution Width 14.3 % (11.5-14.0); White Blood Count 16.5 K/mm3 (4.0-10.5)
[2020-09-25 08:28] LABS: Eosinophil 4 % (0.00-3.0); Lymphocytes 12 % (24-44); Monocyte 10 % (0.0-12.0); Neutrophils 74 % (36.0-66.0); Total Cells Counted 100; Toxic Granulation 2+
[2020-09-25 08:30] LABS: ANISOCYTOSIS 1+; Platelet Estimate NORMAL (NORMAL)
[2020-09-25] MEDS: Colace 100 MG PO SCH ×2 (09:17→21:50)
[2020-09-25] MEDS: FERREX 150 PO SCH (09:17)
[2020-09-25] MEDS ORDERED: Restoril 15 MG PO PRN (10:35)
[2020-09-25] MEDS: NORCO 5/325 MG PO PRN ×4 (11:11→21:03)
[2020-09-25] MEDS ORDERED: Nicoderm CQ 21 MG TOP SCH (15:00)
[2020-09-26] MEDS: NORCO 5/325 MG PO PRN ×2 (03:04→08:21)
--- NOTE | 2020-09-26 08:50 | PCM.DS ---
Discharge Summary Date of Admission: 09/24/20 07:23 Admitting Physician: LEBRON MAYS Consults: Consults on Case 09/24/20 08:06 Notify Anesthesia Provider ROUTINE Notify Physician OF ADMISSION 09/24/20 10:35 Notify Anesthesia Provider PRN Primary Care Provider: LEBRON MAYS Allergies Allergies No Known Drug Allergies Allergy (Verified 04/03/18 18:13) Hospital Summary - Hospital Course Hospital Course: arrived at 37wks with SROM and in labor, had repeat with tubal ligation. has done well post-operatively. rudolph po, mild lochia, pain controlled. - Vitals & Intake/Output Vital Signs: Vital Signs Temperature 97.6 F 09/26/20 04:00 Pulse Rate 89 09/26/20 04:00 Respiratory Rate 20 09/26/20 04:00 Blood Pressure 142/83 09/26/20 04:00 O2 Sat by Pulse Oximetry 99 09/26/20 04:00 Intake & Output: Intake & Output 09/23/20 09/24/20 09/25/20 09/26/20 11:59 11:59 11:59 11:59 Intake Total 3782 2620 Output Total 1950 Balance 1832 2620 Weight 115.666 kg - Lab Result Diagrams: 09/25/20 04:40 Micro Results-Entire Visit: Microbiology 09/24/20 10:07 Urine Culture - Final Urine, Catheterized NO GROWTH 09/24/20 07:38 Urine Culture - Final Catherized <10K NORMAL SKIN DHRUV PROBABLE SKIN CONTAMINANT Discharge Exam General Appearance: no apparent distress, alert Respiratory Exam: normal breath sounds, lungs clear, No respiratory distress Cardiovascular Exam: regular rate/rhythm, normal heart sounds Gastrointestinal/Abdomen Exam: soft, other (incision well approximated, steri strips wet from shower. stressed keeping incision dry to patient), No tenderness, No mass Final Diagnosis/Problem List - Final Discharge Diagnosis/Problem (1) delivery delivered Current Visit: No Status: Acute Code(s): O82 - ENCOUNTER FOR DELIVERY WITHOUT INDICATION (2) Tubal ligation status Current Visit: Yes Status: Acute Code(s): Z98.51 - TUBAL LIGATION STATUS - Discharge Disposition: Home, Self-Care Condition: Stable Prescriptions: New Hydrocodone/Acetaminophen [Hydrocodone-Acetamin 5-325 mg ] 1 tab PO Q6HPRN PRN 5 Days #20 tablet MDD 4 PRN Reason: Pain Continue Vits W-Ca,Fe,FA(<1Mg) [] 1 each PO DAILY Discontinued Ferrous Sulfate 325 mg PO BID Hydrocodone Bit/Acetaminophen [[place] 5-325 Tablet] 1 each PO Q4-6HPRN PRN #28 tablet MDD 4 PRN Reason: Pain Follow up with: LEBRON MAYS MD [Primary Care Provider] -
[2020-09-26] MEDS: Colace 100 MG PO SCH (11:24)
[2020-09-26] MEDS: FERREX 150 PO SCH (11:25)
[2020-09-26 18:45] VITALS: BP 129/63; PULSE 83; O2SAT 100
== END 2020-09-26 13:12 | disposition home or self-care (01) | DRG 785 ==
LOC: OB 07:23 → UNDOADMIN 07:23
PROVIDERS: ADMIT Family Medicine; ATTEND Family Medicine
PROC: 10D00Z1 Extraction of Products of Conception, Low, Open Approach (ICD-10-PCS; principal; 2020-09-24)
PROC: 0UT70ZZ Resection of Bilateral Fallopian Tubes, Open Approach (ICD-10-PCS; 2020-09-24)
DX: O34.211 Maternal care for low transverse scar from previous cesarean delivery (principal); Z3A.37 37 weeks gestation of pregnancy; Z37.0 Single live birth; Z30.2 Encounter for sterilization
CPT/HCPCS: 36415; 62322; 64488; 76937; 76942; 80307; 81001; 84112; 85025; 85027; 85610; 85730; 86850; 86900; 86901; 87086; 87340; 88302; 90471; 90715; 94799; 99140; G0378; J2274; J2405; J2590; L0625; A9270-GY